=== PATIENT | female | born 1960 | race Native Hawaiian/Other Pacific Islander ===

== ENCOUNTER 2016-07-02 15:45 | Emergency (ER) | payer OTHER ==
[~2016-07-02] VITALS: Ht 152.4 cm; Wt 66.7 kg
[~2016-07-02 15:45] MED LIST: ESCITALOPRAM20 MG PO
[2016-07-02 16:04] VITALS: TEMP 99.1
[2016-07-02 16:46] LABS: PLATELET COUNT 301 K/uL (152-353)
[2016-07-02 17:02] LABS: POTASSIUM 4.1 mmol/L (3.6-5.2)
[2016-07-02 18:12] VITALS: BP 120/72
== END 2016-07-02 18:18 | disposition home or self-care (01) ==
LOC: ED 15:45
PROVIDERS: Specialist
DX: R10.32 Left lower quadrant pain (principal); N39.0 Urinary tract infection, site not specified
CPT/HCPCS: 36415; 80048; 81000; 85027; 87086; 87088; 96361; 96374; 99284; J1885